=== PATIENT | female | born 1965 | race Caucasian/White ===

== ENCOUNTER 2018-12-11 01:23 | Emergency (ER) | payer SELFPAY ==
[2018-12-11] MEDS ORDERED: IPRATROPIUM/ALBUTEROL 0.5-2.5 MG/3 ML AMPUL NEB ONE ×3 (03:20)
[2018-12-11] MEDS ORDERED: METHYLPREDNISOLONE INJ 125 MG/2 ML SDV IV ONE (03:20)
--- NOTE | 2018-12-11 03:27 | ER Document Report ---
ED Respiratory Problem - General Chief Complaint: Breathing Difficulty Stated Complaint: DIFFICULTY BREATHING Time Seen by Provider: 12/11/18 03:15 Primary Care Provider: ELENA ALVARADO [NO LOCAL MD] - Follow up as needed Notes: Patient is a 53-year-old female smoker that comes to the emergency department for chief complaint of 4 days of 6 symptoms. Initially she felt sore throat, nausea, then she developed cough, now she has had worsening cough for several days with increasing shortness of breath and wheezing. No recorded fevers. She states now she cannot walk across the room without becoming severely short of b reath. Only daily medication she takes is Zyrtec. Also reports medical history of cardiac ablation and uterine ablation. TRAVEL OUTSIDE OF THE [place] IN LAST 30 DAYS: No - Related Data Allergies/Adverse Reactions: No Known Allergies Allergy (Unverified 12/11/18 01:36) Past Medical History - General Information source: Patient - Social History Smoking Status: Current Every Day Smoker Smoking Education Provided: Yes - <3 min Frequency of alcohol use: None Drug Abuse: None Lives with: Family Family History: Reviewed & Not Pertinent Past Surgical History: Reports: Hx Gynecologic Surgery - uterine ablation, Other - Cardiac ablation - Immunizations Immunizations up to date: Yes Hx Diphtheria, Pertussis, Tetanus Vaccination: Yes Review of Systems - Review of Systems Constitutional: See HPI EENT: See HPI Cardiovascular: No symptoms reported Respiratory: See HPI Gastrointestinal: No symptoms reported Genitourinary: No symptoms reported Female Genitourinary: No symptoms reported Musculoskeletal: No symptoms reported Skin: No symptoms reported Hematologic/Lymphatic: No symptoms reported Neurological/Psychological: No symptoms reported Physical Exam - Vital signs Vitals: Temp Pulse Resp BP Pulse Ox 98.0 F 83 20 174/74 H 93 12/11/18 01:29 12/11/18 01:29 12/11/18 01:29 12/11/18 01:29 12/11/18 01:29 - Notes Notes: GENERAL: Alert and interactive HEAD: Normocephalic, atraumatic. EYES: Pupils equal, round, and reactive to light. Extraocular movements intact. ENT: Oral mucosa moist, tongue midline. Oropharynx unremarkable. Airway patent. Nares somewhat congested, no nasal septal hematoma, TM's intact. NECK: Full range of motion. Supple. Trachea midline. LUNGS: Decreased breath sounds throughout with expiratory wheezes throughout. Mild tachypnea. HEART: Regular rate and rhythm. No murmur ABDOMEN: Soft, non-tender. Non-distended. Bowel sounds present in all 4 quadrants. GENITOURINARY: Deferred EXTREMITIES: Moves all 4 extremities spontaneously. No edema, normal radial and dorsalis pedis pulses bilaterally. No cyanosis. BACK: no cervical, thoracic, lumbar midline tenderness. No saddle anesthesia, normal distal neurovascular exam. NEUROLOGICAL: Alert and oriented x3. Normal speech. [cranial nerves II through XII grossly intact]. PSYCH: Normal affect, normal mood. SKIN: Warm, dry, normal turgor. No rashes or lesions noted. Course - Re-evaluation Re-evalutation: On initial evaluation patient with mild tachypnea, decreased breath sounds, expiratory wheezes, she did get up and try to walk and had very significant dyspnea on exertion. On initial evaluation after first DuoNeb's patient does have improvement but still has a lot of wheezing. Given 1 g of magnesium, patient declines 2 g. Cymetra given. Chest x-ray unremarkable, venous blood gas unremarkable, CBC, chemistry unremarkable, troponin is not elevated. 12/11/18 05:45 Patient is significantly improved on reevaluation with almost complete resolution of wheezing, she is no longer tachypnea, she can speak in full sentences. Her pulse oxygenation is still borderline. Patient states she was to go home. She did agree to ambulate with pulse oxygenation testing to help determine if she is ready, she did not do well, her oxygen saturation dropped to 88% on room air, she had to stop multiple times during the ambulation. I discussed with patient afterwards, I recommended admission to the hospital for treatment of COPD exacerbation, bronchitis, hypoxia. Patient refuses. She states that she feels much better than when she came in, she is not in agreement with hospital admission, she states that she will go home and she will return if she worsens in any way. Patient was provided with albuterol inhaler, spacer, prednisone, and encouraged to return at any time and if she worsens in any way. Patient does state understanding and agreement. - Vital Signs Vital signs: Temp Pulse Resp BP Pulse Ox 98.0 F 83 14 143/60 H 91 L 12/11/18 01:29 12/11/18 01:29 12/11/18 05:02 12/11/18 05:02 12/11/18 05:02 - Laboratory Result Diagrams: 12/11/18 03:40 12/11/18 03:40 Laboratory results interpreted by me: 12/11/18 12/11/18 03:40 03:40 RDW 14.6 H Glucose 112 H Discharge - Discharge Clinical Impression: Wheezing, Tobacco abuse Upper respiratory infection Qualifiers: URI type: unspecified URI Qualified Code(s): J06.9 - Acute upper respiratory infection, unspecified Condition: Stable Disposition: HOME, SELF-CARE Additional Instructions: Your evaluation is consistent with bronchitis and likely a COPD exacerbation. Take prednisone as prescribed, take albuterol inhaler, rest. Follow-up with primary care provider closely. Stop smoking. Return at any time or if you worsen in any way. Prescriptions: Albuterol Sulfate [Proair HFA Inhalation Aerosol 8.5 gm MDI] 2 puff IH Q4H PRN #1 mdi PRN Reason: Prednisone [Deltasone 20 mg Tablet] 3 tab PO DAILY 5 Days #15 tablet Forms: Smoking Cessation Education, Return to Work Referrals: LOCALMD,NO [NO LOCAL MD] - Follow up as needed
[2018-12-11 03:54] LABS: ABSOLUTE BASOPHILS # (AUTO) 0.1 10^3/uL (0.0-0.2); ABSOLUTE EOSINOPHILS # (AUTO) 0.1 10^3/uL (0.0-0.6); ABSOLUTE LYMPHOCYTES (AUTO) 1.6 10^3/uL (0.5-4.7); ABSOLUTE MONOCYTES (AUTO) 0.9 10^3/uL (0.1-1.4); ABSOLUTE NEUT (AUTO) 6.8 10^3/uL (1.7-8.2); BASOPHILS % (AUTO) 0.7 % (0-2); EOSINOPHILS % (AUTO) 0.8 % (0-6); HEMATOCRIT 41.1 % (36.0-47.0); HEMOGLOBIN 14.2 g/dL (12.0-15.5); LYMPHOCYTES % (AUTO) 17.2 % (13-45); MEAN CORPUSCULAR HEMOGLOBIN 29.7 pg (27.0-33.4); MEAN CORPUSCULAR HGB CONC 34.6 g/dL (32.0-36.0); MEAN CORPUSCULAR VOLUME 86 fl (80-97); MONOCYTES % (AUTO) 9.3 % (3-13); PLATELET COUNT 245 10^3/uL (150-450); RED BLOOD COUNT 4.78 10^6/uL (3.72-5.28); RED CELL DISTRIBUTION WIDTH 14.6 % (11.5-14.0); TOTAL CELLS COUNTED % (AUTO) 100 %; WHITE BLOOD COUNT 9.4 10^3/uL (4.0-10.5)
[2018-12-11 03:58] LABS: VENOUS BLOOD BASE EXCESS -0.7 mmol/L; VENOUS BLOOD HCO3 23.7 mmol/L (20-32); VENOUS BLOOD PCO2 38.2 mmHg (35-63); VENOUS BLOOD PH 7.41 (7.30-7.42)
[2018-12-11 04:14] LABS: ANION GAP 12 (5-19); BLOOD UREA NITROGEN 7 mg/dL (7-20); CALCIUM 9.3 mg/dL (8.4-10.2); CARBON DIOXIDE 26 mmol/L (22-30); CHLORIDE 102 mmol/L (98-107); GLUCOSE 112 mg/dL (75-110); POTASSIUM 4.2 mmol/L (3.6-5.0); SODIUM 139.7 mmol/L (137-145)
[2018-12-11] MEDS ORDERED: MAGNESIUM SULFATE/D5W 1 GM/100 ML RTUPB IV ONE (04:20)
--- NOTE | 2018-12-11 04:29 | RADIOLOGY REPORT (SQ) ---
EXAM DESCRIPTION: XR CHEST 1 VIEW COMPLETED DATE/TME: 12/11/2018 03:22 CLINICAL HISTORY: 53 years, Female, shortness of breath Comparison: None FINDINGS: No focal lung consolidation. No pleural effusion. No pneumothorax. Cardiac and mediastinal silhouette is unremarkable. No acute osseous abnormality. Soft tissues are unremarkable. IMPRESSION: No acute findings. No focal lung consolidation.
[2018-12-11] MEDS ORDERED: ALBUTEROL SULFATE HFA (90 MCG/PUFF) 8 GM MDI (1 MDI/ER DISP) IH ONE (05:42)
[2018-12-11 05:58] VITALS: BP 136/73
== END 2018-12-11 05:59 | disposition home or self-care (01) ==
LOC: ER 01:23
DX: J06.9 Acute upper respiratory infection, unspecified (principal); R06.2 Wheezing; R05 Cough; Z79.899 Other long term (current) drug therapy; F17.200 Nicotine dependence, unspecified, uncomplicated
CPT/HCPCS: 94640 ×2; 99285; 96375; 96365; 36415; 85025; 80048; 84484; 82803; 71045; J2930; J3475; J3490; J7620